=== PATIENT | male | born 1955 | race Caucasian/White ===

== ENCOUNTER 2016-12-26 11:05 | Day surgery (SDC) | payer OTHER ==
[~2016-12-26 11:05] MED LIST: FENTANYL INJ 100 mcg ONE; NS 500 ML IV 500 ML IV ONE; VERSED ONE
[2016-12-26] MEDS ORDERED: TETRACAINE 0.5% OPHTH 1 DOSE AFFEYE ONE ×4 (11:35→13:23)
[2016-12-26] MEDS ORDERED: VIGAMOX 0.5% OPHTH 1 DOSE AFFEYE ONE ×5 (11:40→13:53)
[2016-12-26] MEDS ORDERED: NS 1/2 1000 ML IV 1,000 ML IV ONE (11:45)
[2016-12-26] MEDS ORDERED: PROLENSA OPHTH 1 DOSE AFFEYE ONE (11:51)
[2016-12-26] MEDS ORDERED: ALPHAGAN-P OPHTH 1 DOSE AFFEYE ONE (11:52)
[2016-12-26] MEDS ORDERED: CYCLOGYL 1% OPHTH 1 DOSE OP ONE ×3 (11:53→11:55)
[2016-12-26] MEDS ORDERED: AK-DILATE 2.5% OPHTH 1 DOSE OP ONE ×3 (11:53→11:55)
[2016-12-26] MEDS ORDERED: MYDRIACIL OPHTH 1 DOSE AFFEYE ONE ×3 (11:53→11:55)
[2016-12-26] MEDS ORDERED: AK-DILATE 10% OPHTH 1 DOSE AFFEYE ONE (13:12)
[2016-12-26] MEDS ORDERED: VERSED IVP ONE (13:24)
[2016-12-26] MEDS ORDERED: ADRENALINE CHL INJ IJ ONE ×2 (13:37→13:40)
[2016-12-26] MEDS ORDERED: BETADINE OPHTH SOLN 5% EACHEYE ONE (13:37)
[2016-12-26] MEDS ORDERED: DUOVISC IO ONE ×2 (13:37→13:40)
[2016-12-26] MEDS ORDERED: XYLOCAINE-MPF 1% IJ ONE ×2 (13:37→13:40)
[2016-12-26] MEDS ORDERED: BSS OPHTH (PLAIN) 500 ML with VANCOMYCIN HCL 500 MG VIAL 25 MG, ADRENALINE CHL INJ 1 MG IR ONE ×3 (13:40)
[2016-12-26 14:24] VITALS: BP 145/90
== END 2016-12-26 14:18 | disposition home or self-care (01) ==
LOC: SURG1 11:05
PROVIDERS: ATTEND Ophthalmology
PROC: 08RK3JZ Replacement of Left Lens with Synthetic Substitute, Percutaneous Approach (ICD-10-PCS; principal; 2016-12-26 16:45)
PROC: 08DK3ZZ Extraction of Left Lens, Percutaneous Approach (ICD-10-PCS; principal; 2016-12-26 16:45)
DX: H25.12 Age-related nuclear cataract, left eye (principal); H25.012 Cortical age-related cataract, left eye; H25.042 Posterior subcapsular polar age-related cataract, left eye; H52.222 Regular astigmatism, left eye
CPT/HCPCS: A4217; J0170; J2250; J3010; J3370

== ENCOUNTER 2017-01-23 07:04 | Day surgery (SDC) | payer OTHER ==
[2017-01-23] MEDS ORDERED: TETRACAINE 0.5% OPHTH 1 DOSE AFFEYE ONE ×6 (07:35→09:49)
[2017-01-23] MEDS ORDERED: VIGAMOX 0.5% OPHTH 1 DOSE AFFEYE ONE ×5 (07:36→10:00)
[2017-01-23] MEDS ORDERED: PROLENSA OPHTH 1 DOSE AFFEYE ONE (07:47)
[2017-01-23] MEDS ORDERED: ALPHAGAN-P OPHTH 1 DOSE AFFEYE ONE (07:48)
[2017-01-23] MEDS ORDERED: MYDRIACIL OPHTH 1 DOSE AFFEYE ONE ×3 (07:49→07:53)
[2017-01-23] MEDS ORDERED: CYCLOGYL 1% OPHTH 1 DOSE OP ONE ×3 (07:49→07:53)
[2017-01-23] MEDS ORDERED: AK-DILATE 2.5% OPHTH 1 DOSE OP ONE ×3 (07:49→07:53)
[2017-01-23] MEDS ORDERED: VERSED ONE (08:05)
[2017-01-23] MEDS ORDERED: NS 500 ML IV 500 ML IV ONE (08:18)
[2017-01-23] MEDS ORDERED: VERSED IVP ONE ×2 (09:17→09:18)
[2017-01-23] MEDS ORDERED: AK-DILATE 10% OPHTH 1 DOSE AFFEYE ONE (09:22)
[2017-01-23] MEDS ORDERED: XYLOCAINE-MPF 1% IJ ONE ×2 (09:37→09:49)
[2017-01-23] MEDS ORDERED: ADRENALINE CHL INJ IJ ONE ×2 (09:37→09:49)
[2017-01-23] MEDS ORDERED: BETADINE OPHTH SOLN 5% EACHEYE ONE (09:37)
[2017-01-23] MEDS ORDERED: DUOVISC IO ONE ×2 (09:38→09:49)
[2017-01-23] MEDS ORDERED: BSS OPHTH (PLAIN) 500 ML with VANCOMYCIN HCL 500 MG VIAL 25 MG, ADRENALINE CHL INJ 1 MG IR ONE ×6 (09:38)
[2017-01-23 10:16] VITALS: BP 137/80
== END 2017-01-23 10:20 | disposition home or self-care (01) ==
LOC: SURG1 07:04
PROVIDERS: ATTEND Ophthalmology
PROC: 08RJ3JZ Replacement of Right Lens with Synthetic Substitute, Percutaneous Approach (ICD-10-PCS; principal; 2017-01-23 09:00)
PROC: 08DJ3ZZ Extraction of Right Lens, Percutaneous Approach (ICD-10-PCS; principal; 2017-01-23 09:00)
DX: H25.11 Age-related nuclear cataract, right eye (principal); H25.011 Cortical age-related cataract, right eye; H25.041 Posterior subcapsular polar age-related cataract, right eye; H52.221 Regular astigmatism, right eye
CPT/HCPCS: A4217; J0170; J2250; J3370